=== PATIENT | female | born 1990 | race Two or more races ===

== ENCOUNTER 2020-06-07 08:01 | Inpatient (IN) | payer OTHER ==
[~2020-06-07] VITALS: Ht 160 cm; Wt 95.3 kg
[2020-06-07] MEDS ORDERED: PRENATAL + DHA1 EAC1 PO (10:40)
== END 2020-06-09 13:06 | disposition home or self-care (01) | DRG 807 ==
LOC: OB/GYN 08:01 → LDR 08:01 → OB/GYN 17:34
PROVIDERS: ADMIT Obstetrics & Gynecology; ATTEND Obstetrics & Gynecology
PROC: 10E0XZZ Delivery of Products of Conception, External Approach (ICD-10-PCS; principal; 2020-06-07)
PROC: 4A1HXFZ Monitoring of Products of Conception, Cardiac Rhythm, External Approach (ICD-10-PCS; 2020-06-07)
DX: O80 Encounter for full-term uncomplicated delivery (principal); Z37.0 Single live birth; Z3A.39 39 weeks gestation of pregnancy; Z20.822 Contact with and (suspected) exposure to COVID-19